=== PATIENT | female | born 1990 | race African-American/Black ===

== ENCOUNTER 2020-01-29 21:35 | Emergency (ER) | payer MEDICAID ==
[~2020-01-29] VITALS: Ht 175.3 cm; Wt 65.9 kg
[2020-01-29 23:05] VITALS: BP 130/72
--- NOTE | 2020-01-29 23:37 | PHYS DOC ---
Past Medical History Past Medical History: No Pertinent History (GABO LIRIANO APRN) Past Surgical History: (GABO LIRIANO APRN) Smoking Status: Current Some Day Smoker Alcohol Use: Occasionally (GABO LIRIANO APRN) Attending Signature I have participated in the care of this patient and I have reviewed and agree with all pertinent clinical information above including history, exam, and recommendations. (JIN GARCIA MD) Adult General Chief Complaint Chief Complaint: FLU SYMPTOM HPI HPI Patient is a 29 year old female who presents with sore throat, headache, body aches, chills, shortness of breath, cough. She states that her fevers been as high as 100.5 F. Complete ROS were reviewed and found to be within normal limits, except as documented in the HPI (GABO LIRIANO APRN) Physical Exam Physical Exam Constitutional: Well developed, well nourished, no acute distress, non-toxic appearance. [] HENT: Normocephalic, atraumatic, bilateral external ears normal, bilateral tympanic membranes are pearly raymond, oropharynx moist, no oral exudates, nose turbinates are inflamed. Eyes: PERRLA, EOMI, conjunctiva normal, no discharge. [] Neck: Normal range of motion, no tenderness, supple, no stridor. [] Cardiovascular:Heart rate regular rhythm, no murmur [] Lungs & Thorax: Bilateral breath sounds clear to auscultation [] Abdomen: Bowel sounds normal, soft, no tenderness, no masses, no pulsatile masses. [] Skin: Warm, dry, no erythema, no rash. [] Neurologic: Alert and oriented X 3, normal motor function, normal sensory function, no focal deficits noted. [] Psychologic: Affect normal, judgement normal, mood normal. [] (GABO LIRIANO APRN) Current Patient Data Vital Signs Vital Signs Date Time Temp Pulse Resp B/P (MAP) Pulse Ox O2 Delivery O2 Flow Rate FiO2 01/29/20 23:05 99.4 94 12 130/72 (91) 97 Room Air 99.4 (JIN GARCIA MD) Lab Values Laboratory Tests Test 01/29/20 23:30 Influenza Type A Antigen Negative (NEGATIVE) Influenza Type B Antigen Negative (NEGATIVE) (JIN GARCIA MD) Lab Values Laboratory Tests Test 01/29/20 23:30 Influenza Type A Antigen Negative (NEGATIVE) Influenza Type B Antigen Negative (NEGATIVE) (GABO LIRIANO APRN) EKG EKG [] (GABO LIRIANO APRN) Radiology/Procedures Radiology/Procedures [] (GABO LIRIANO APRN) Course & Med Decision Making Course & Med Decision Making Pertinent Labs and Imaging studies reviewed. (See chart for details) We will get flu, strep, chest x-ray. Flu, strep, and chest x-ray are unremarkable. Discussed with the patient that she is at risk for the having the coronavirus and is self isolating self the next 14 days. (GABO LIRIANO APRN) Dragon Disclaimer Dragon Disclaimer This electronic medical record was generated, in whole or in part, using a voice recognition dictation system. (GABO LIRIANO APRN) Departure Departure Impression: Primary Impression: Acute viral syndrome Disposition: HOME, SELF-CARE Condition: STABLE Referrals: NO PCP (PCP) Patient Instructions: Viral Syndrome Additional Instructions: Thank you for visiting [facility]. We appreciate you trusting us with your care. If any additional problems come up don't hesitate to return to visit us. Please follow up with your primary care provider so they can plan additional care if needed and know about the problem that you had. If symptoms worsen come back to the Emergency Department. Any concerning symptoms that start such as chest pain, shortness of air, weakness or numbness on one side of the body, running high fevers or any other concerning symptoms return to the ER. You have a viral syndrome which may include symptoms like muscle aches, fevers, chills, runny nose, cough, sneezing, sore throat, vomiting, or diarrhea. One of the potential viruses that you may have is SARS-CoV-2, the virus that causes COVID-19, also known as the Coronavirus. You are just as likely to have a diff erent viral infection such as the common cold, flu, etc. Most patients with the Coronavirus have mild symptoms and recover on their own. Resting, staying hydrated, and sleep from known cases can be helpful. As of todays visit, you are well enough to go home and treat your symptoms with oral fluids and over the counter medications. Coronavirus testing is not performed on most people with mild symptoms who are being discharged from the emergency department. If Coronavirus testing was performed the results will not be available for possibly up to 2-3 days. If your result is positive you will be contacted. Please follow the following precautions at home: 1) Stay home except to get medical care. 2) As advised by the CDC we recommend you stay in your home and minimize contact with other people. We do not want you to spread the infection. 3) Those who are older or have significant medical issues may have more severe symptoms from this infection. We recommend self-isolation,FOR AT LEAST 7 DAYS after your 1st day of symptoms. AFTER you feel better please wait AT LEAST ANOTHER WEEK before returning to regular activities and being around other people! 4) IF you become sicker and have difficulty breathing, chest pain, unable to eat/drink, severe vomiting, diarrhea, or weakness you may need to return to the Emergency Department. 5) You should restrict activities outside your home, except for getting medical care. DO NOT go to work, school, or public areas. Avoid using public transportation, ride sharing, or taxis. 6) Separate yourself from other people in your home. You should use a separate bathroom if possible. 7) Avoid sharing personal household items such as dishes, cups, eating utensils, towels, etc. 8) Clean all high touch surfaces every day (door knobs, counter tops, etc). Use a household cleaning spray or wipe per label instructions. 9) Clean your hands often. Wash your hands with soap and water for at least 20 seconds. 10) Cover your mouth and nose with a tissue when you cough or sneeze. 11) Throw used tissues in a trash can and immediately wash your hands. For additional resources please visit the CDC website or the [facility] ([phone]). GABO LIRIANO APRN Jan 29, 2020 23:37 JIN GARCIA MD Jan 30, 2020 03:10
[2020-01-29 23:56] LABS: INFLUENZA A PATIENT NEGATIVE (NEGATIVE); INFLUENZA B PATIENT NEGATIVE (NEGATIVE)
--- NOTE | 2020-01-30 00:01 | RAD ---
PA and lateral chest. HISTORY: Cough, fever PA and lateral views were taken of the chest. There is an artifact on the right. Lungs are free of infiltrates. Heart is normal in size without heart failure. There is no effusion. IMPRESSION: 1. No acute chest disease. Electronically signed by: Ajit Cheng MD (01/29/2020 11:58 PM) [id number]
== END 2020-01-30 00:30 | disposition home or self-care (01) ==
LOC: ER 21:35
DX: B34.9 Viral infection, unspecified (principal); R05 Cough; R06.02 Shortness of breath; R51 Headache
CPT/HCPCS: 71046; 87070; 87804; 87880; 99284